=== PATIENT | female | born 1975 | race Caucasian/White ===

== ENCOUNTER 2017-03-11 12:05 | Emergency (ER) | payer OTHER ==
[2017-03-11 12:15] VITALS: BP 142/81
--- NOTE | 2017-03-11 13:10 | UC ---
Sneha Dowling Rebecca, scribed for Billie James MD on 03/11/17 at 1236 . Complaint Female HPI - HPI Summary HPI Summary: Pt is a 41 y/o F who presents to [facility] c/o suspected stuck tampon. Reports the tampon may have been in place for 2 days. She initially did not realize it was stuck, then she believed it had been removed so she put in another one after which "something did not feel right." Now, she is unable to feel the tampon or string but is "90% sure it is there." Additionally c/o lower abdominal pain, ranked 4/10 that began yesterday. Denies vaginal discharge or odor. - History Of Current Complaint Chief Complaint: UCGU Stated Complaint: PERSONAL Time Seen by Provider: 03/11/17 12:34 Hx Obtained From: Patient Hx Last Menstrual Period: 03/07/17 Onset/Duration: Lasting Days - Tampon in place - 2 days Abd pain - 1 day, Still Present Severity Currently: Moderate Pain Intensity: 4 Pain Scale Used: 0-10 Numeric Character: Sharp Associated Signs And Symptoms: Negative: Vaginal Bleeding/Discharge - Allergies/Home Medications Allergies/Adverse Reactions: Allergies Allergy/AdvReac Type Severity Reaction Status Date / Time No Known Allergies Allergy Verified 03/11/17 12:11 Home Medications: Home Medications NK [No Home Medications Reported] 03/11/17 [History Confirmed 03/11/17] PMH/Surg Hx/FS Hx/Imm Hx Previously Healthy: Yes Other GI/ History: IBS - Surgical History Surgical History: None - Family History Known Family History: Positive: Cardiac Disease - father - Social History Occupation: Employed Full-time - professor at [employer]. Alcohol Use: Occasionally Substance Use Type: None Smoking Status (MU): Never Smoked Tobacco Review of Systems Constitutional: Negative Skin: Negative Eyes: Negative ENT: Negative Respiratory: Negative Cardiovascular: Negative Gastrointestinal: Abdominal Pain - Moderate lower abdominal pain--cramping. Genitourinary: Other - suspected tampon in vagina; could not find it. No discharge, no odor. Motor: Negative Neurovascular: Negative Musculoskeletal: Negative Neurological: Negative Psychological: Negative All Other Systems Reviewed And Are Negative: Yes Physical Exam Triage Information Reviewed: Yes Appearance: Well-Appearing, No Pain Distress Vital Signs: Initial Vital Signs Temp 97.8 F 03/11/17 12:12 Pulse 79 03/11/17 12:12 Resp 15 03/11/17 12:12 BP 142/81 03/11/17 12:12 Pulse Ox 100 03/11/17 12:12 Respiratory Exam: Normal Abdomen Description: Positive: Nontender, No Organomegaly, Soft, Other: - Digital exam shows no evidence of foreign body. Speculum exam done without evidence of tampon. Neurological Exam: Normal Psychological Exam: Normal Skin Exam: Normal Complaint Female Dx - Course Course Of Treatment: no treatment required; advised no evidence of foreign body. - Differential Dx/Diagnosis Differential Diagnosis/HQI/PQRI: Retained Foreign Body Provider Diagnoses: menses, no evidence of foreign body. Discharge - Discharge Plan Condition: Stable Disposition: HOME Patient Education Materials: Vaginal Foreign Body (ED) Referrals: Irving Gerard MD [Primary Care Provider] - Additional Instructions: A retained tampon was not evident today with examination. Should you have increasing discharge or foul odor, please return for evaluation. The documentation as recorded by the Sneha stewart Rebecca accurately reflects the service I personally performed and the decisions made by me, Billie James MD.
== END 2017-03-11 13:23 | disposition home or self-care (01) ==
LOC: UCEAST 12:05
DX: N94.89 Other specified conditions associated with female genital organs and menstrual cycle (principal)
CPT/HCPCS: 99212; G0463

== ENCOUNTER 2017-09-16 00:02 | Emergency (ER) | payer OTHER ==
[2017-09-16] MEDS ORDERED: NS 0.9% 1000 ML* 1,000 ML IV ONE (00:27)
[2017-09-16] MEDS ORDERED: Tetan/Diph/Pertus SYR(Tdap)* 0.5 ML SYR(BOOSTRIX) use SYR IM ONE (00:30)
[2017-09-16 01:31] LABS: ABS Basophils 0.1 10^3/ul (0-0.2); ABS Eosinophils 0 10^3/ul (0-0.6); ABS Lymphocytes 0.9 10^3/ul (1.0-4.8); ABS Monocytes 0.5 10^3/ul (0-0.8); ABS Neutrophils 12.1 10^3/ul (1.5-7.7); ABS Nucleated RBC 0 10^3/ul; Eosinophil % 0 % (0-6); Hematocrit 41 % (35-47); Hemoglobin 13.7 g/dl (12.0-16.0); Lymphocyte % 6.8 % (25-47); Mean Corpuscular HGB Conc 34 g/dl (31-36); Mean Corpuscular Hemoglobin 32 pg (27-31); Mean Corpuscular Volume 95 fL (80-97); Mean Platelet Volume 7 um3 (7.4-10.4); Nucleated Red Blood Cells % 0; Platelet Count 348 10^3/ul (150-450); Red Blood Count 4.28 10^6/ul (4.0-5.4); Red Cell Distribution Width 13 % (10.5-15); White Blood Count 13.6 10^3/ul (3.5-10.8)
[2017-09-16 01:47] LABS: EGFR Non-African American 90.9 (>60)
--- NOTE | 2017-09-16 03:05 | ED ---
Danielito Dowling Jason, scribed for Piedad Mauricio MD on 09/16/17 at 0201 . Adult Trauma - HPI Summary HPI Summary: This patient is a 42 year old F BIBA to [facility] with a chief complaint of facial trauma since 2299 1 day ago. The patient states that she woke up to go to restroom and upon returning found blood on her pillow. She found that she had a laceration to the right eye and a right shoulder hematoma, but does not recall falling. She Admits to drinking a few drinks prior to the accident and includes that she drinks every day. The patient rates the pain 3/10 in severity. Symptoms aggravated by nothing. Symptoms alleviated by nothing. - History of Current Complaint Chief Complaint: EDHeadInjury Stated Complaint: EYE INJURY Time Seen by Provider: 09/16/17 00:18 Hx Obtained From: Patient Hx Last Menstrual Period: 03/07/17 Mechanism of Injury: Fall - Does not remember fall but suspects this is the cause. Onset/Duration: Started Hours Ago - Since 2299, Still Present Onset of Pain: Post Accident Pain Intensity: 3 Pain Scale Used: 0-10 Numeric Location: Head - Right eye, Other - Right shoulder Aggravating Factor(s): Nothing Alleviating Factor(s): Nothing Associated Signs & Symptoms: Positive: Other: - right eye laceration and right shoulder hematoma. - Allergy/Home Medications Allergies/Adverse Reactions: Allergies Allergy/AdvReac Type Severity Reaction Status Date / Time No Known Allergies Allergy Verified 03/11/17 12:11 PMH/Surg Hx/FS Hx/Imm Hx Previously Healthy: No Endocrine/Hematology History: Denies: Hx Anticoagulant Therapy Opthamlomology History: Denies: Hx Legally Blind EENT History: Denies: Hx Deafness Infectious Disease History: Yes Infectious Disease History: Reports: Traveled Outside the [place] in Last 30 Days - [place] Denies: Hx Clostridium Difficile, Hx Hepatitis, Hx Human Immunodeficiency Virus (HIV), Hx of Known/Suspected MRSA, Hx Shingles, Hx Tuberculosis, Hx Known/ Suspected VRE, Hx Known/Suspected VRSA, History Other Infectious Disease - Family History Known Family History: Positive: Cardiac Disease - father Negative: Blood Disorder - Social History Alcohol Use: Daily Alcohol Amount: Admits to 3 scotch drinks Substance Use Type: Reports: None Smoking Status (MU): Never Smoked Tobacco Review of Systems Positive: Other - Right eye laceration Positive: Other - right shoulder hematoma All Other Systems Reviewed And Are Negative: Yes Physical Exam - Summary Physical Exam Summary: VITAL SIGNS: Reviewed. GENERAL: ~Patient is a well-developed and nourished female who is lying comfortable in the stretcher. Patient is not in any acute respiratory distress. HEAD AND FACE: No signs of trauma. No ecchymosis, hematomas or skull depressions. No sinus tenderness. EYES: PERRLA, EOMI x 2, No injected conjunctiva, no nystagmus. Ecchymosis over right eye. 1 cm laceration over right orbital area. EARS: Hearing grossly intact. Ear canals and tympanic membranes are within normal limits. MOUTH: Oropharynx within normal limits. NECK: Supple, trachea is midline, no adenopathy, no JVD, no carotid bruit, no c- spine tenderness, neck with full ROM. CHEST: Symmetric, no tenderness at palpation LUNGS: Clear to auscultation bilaterally. No wheezing or crackles. CVS: Regular rate and rhythm, S1 and S2 present, no murmurs or gallops appreciated. ABDOMEN: Soft, non-tender. No signs of distention. No rebound no guarding, and no masses palpated. Bowel sounds are normal. EXTREMITIES: FROM in all major joints, no cyanosis or clubbing. Mild swelling over the right shoulder. NEURO: Alert and oriented x 3. No acute neurological deficits. Speech is normal and follows commands. SKIN: Dry and warm Triage Information Reviewed: Yes Vital Signs On Initial Exam: Initial Vitals Temp Pulse Resp BP Pulse Ox 98.0 F 90 23 118/88 100 09/16/17 00:10 09/16/17 00:10 09/16/17 00:10 09/16/17 00:10 09/16/17 00:10 Vital Signs Reviewed: Yes Procedures - Laceration/Wound Repair 1 Location: face - above right periorbital area Description: Linear Anesthesia: 1.0%, Lido Irrigated w/ Saline (ccs): 20 Laceration/Wound Explored: clean Closure: Multilayer - Two layers were closed. Suture Type: Other - Polisorb 5.0 Number of Sutures: 4 - 1 suture for inner layer. 3 sutures for outer layers. Layer Closure?: Yes Sterile Dressing Applied?: Yes Diagnostics - Vital Signs Vital Signs Temp Pulse Resp BP Pulse Ox 02/10/18 00:12 86 21 100 09/16/17 00:10 98.0 F 90 23 118/88 100 - Laboratory Lab Results: Lab Results 09/16/17 09/16/17 Range/Units 01:20 01:20 WBC 13.6 H (3.5-10.8) 10^3/ul RBC 4.28 (4.0-5.4) 10^6/ul Hgb 13.7 (12.0-16.0) g/dl Hct 41 (35-47) % MCV 95 (80-97) fL MCH 32 H (27-31) pg MCHC 34 (31-36) g/dl RDW 13 (10.5-15) % Plt Count 348 (150-450) 10^3/ul MPV 7 L (7.4-10.4) um3 Neut % (Auto) 88.8 H (38-83) % Lymph % (Auto) 6.8 L (25-47) % Arroyo % (Auto) 3.9 (1-9) % Eos % (Auto) 0 (0-6) % Baso % (Auto) 0.5 (0-2) % Absolute Neuts (auto) 12.1 H (1.5-7.7) 10^3/ul Absolute Lymphs (auto) 0.9 L (1.0-4.8) 10^3/ul Absolute Monos (auto) 0.5 (0-0.8) 10^3/ul Absolute Eos (auto) 0 (0-0.6) 10^3/ul Absolute Basos (auto) 0.1 (0-0.2) 10^3/ul Absolute Nucleated RBC 0 10^3/ul Nucleated RBC % 0 Sodium 135 (133-145) mmol/L Potassium 3.9 (3.5-5.0) mmol/L Chloride 99 L (101-111) mmol/L Carbon Dioxide 25 (22-32) mmol/L Anion Gap 11 (2-11) mmol/L BUN 7 (6-24) mg/dL Creatinine 0.70 (0.51-0.95) mg/dL Est GFR ( Amer) 116.9 (>60) Est GFR (Non-Af Amer) 90.9 (>60) BUN/Creatinine Ratio 10.0 (8-20) Glucose 105 H (70-100) mg/dL Calcium 8.8 (8.6-10.3) mg/dL Total Bilirubin 0.40 (0.2-1.0) mg/dL AST 43 H (13-39) U/L ALT 35 (7-52) U/L Alkaline Phosphatase 38 (34-104) U/L Total Protein 7.7 (6.4-8.9) g/dL Albumin 4.7 (3.2-5.2) g/dL Globulin 3.0 (2-4) g/dL Albumin/Globulin Ratio 1.6 (1-3) Beta HCG, Quant < 0.60 mIU/mL Serum Alcohol 305 H (<10) mg/dL Result Diagrams: 09/16/17 01:20 09/16/17 01:20 Lab Statement: Any lab studies that have been ordered have been reviewed, and results considered in the medical decision making process. - Radiology shoulder x-ray Radiology Interpretation Completed By: ED Physician - Shoulder x-ray reveals AC separation, no fracture. - CT Brain CT Interpretation Completed By: Radiologist - CT Brain reveals, per radiologist , no acute parenchymal abnormality. No hemorrhage, mass or acute territorial infarct. No skull fracture. Clear visualized paranasal sinuses. Visualized mastoid air cells clear. ED physician has reviewed this radiology report. CT maxillofacial CT Interpretation Completed By: ED Physician - CT Maxillofacial reveals, per radiologist, acute comminuted fractures right zygomatic arch, lateral wall and floor of right orbit, and anterior and lateral kwan of right maxillary sinus. Fracture line extends near foot of second right maxillary molar. Associated overlying soft tissue swelling and emphysema and acute hemorrhage in the sinus. Globes intact. Minimal mucoperiosteal thickening paranasal sinuses. ED physician has reviewed this radiology. - EKG 0106 Cardiac Rate: NL EKG Rhythm: Sinus Rhythm - 86 bpm EKG Interpretation: Normal axis, Normal interval, and No ischemic changes. Adult Trauma Course/Dx - Course Course Of Treatment: This patient is a 42 year old F BIBA to [facility] with a chief complaint of facial trauma since 2300 1 day ago. The patient states that she. woke up to go to restroom and upon returning found blood on her pillow. She found that she had a laceration to the right eye and a right shoulder hematoma, but does not recall falling. She Admits to drinking a few drinks prior to the accident and includes that she drinks every day. In the ED course the patient was given IV fluids. Shoulder x-ray reveals AC separation, no fracture. CT Brain reveals, per radiologist, no acute parenchymal abnormality. No hemorrhage , mass or acute territorial infarct. No skull fracture. Clear visualized paranasal sinuses. Visualized mastoid air cells clear. CT Maxillofacial reveals , per radiologist, acute comminuted fractures right zygomatic arch, lateral wall and floor of right orbit, and anterior and lateral kwan of right maxillary sinus. Fracture line extends near foot of second right maxillary molar. Associated overlying soft tissue swelling and emphysema and acute hemorrhage in the sinus. Globes intact. Minimal mucoperiosteal thickening paranasal sinuses. An EKG reveals normal sinus rhythm at 86 bpm, with Normal axis, Normal interval, and No ischemic changes. Assessment/Plan: The laceration above the right periorbital area was repaired using sutures. Patient will be discharged and will follow up with PCP to remove stitches in 5 days. The patient is agreeable with this plan. Dx of ETOH intoxication and facial laceration. - Diagnoses Provider Diagnoses: Alcohol intoxication, Facial laceration Discharge - Discharge Plan Condition: Stable Disposition: HOME Patient Education Materials: Care For Your Stitches (ED), Alcohol Intoxication (ED), Facial Laceration (ED) Referrals: Irving Gerard MD [Primary Care Provider] - The documentation as recorded by the Danielito stewart Jason accurately reflects the service I personally performed and the decisions made by , Piedad Mauricio MD.
[2017-09-16 04:08] VITALS: BP 113/76
--- NOTE | 2017-09-16 08:12 | RAD ---
Indication: Fall with laceration to RIGHT side of eye. Hematoma at RIGHT shoulder. Comparison: No relevant prior exams available on the [facility] [place] for comparison. Technique: Noncontrast CT vertex of skull through foramen magnum. Report: The sulci, ventricles, and basal cisterns are normal for age. Rutherford matter white matter differentiation is preserved without evidence for edema. No intra or extra axial hemorrhage is detected. At the caudal aspect of the [id number] there is partial visualization of a fracture at the lateral margin of the RIGHT orbit and segmental medially impacted fracture at the RIGHT zygomatic arch. Overlying subcutaneous edema and punctate focus of subcutaneous emphysema. Refer to dedicated maxillofacial CT for full description including assessment of the orbital contents. Clear visualized paranasal sinuses and mastoid air spaces. IMPRESSION: 1. No CT evidence for traumatic brain injury or acute intracranial process. 2. Fracture at the lateral margin of the RIGHT orbit and segmental medially impacted fracture at the RIGHT zygomatic arch. Overlying subcutaneous edema and punctate focus of subcutaneous emphysema. Refer to dedicated maxillofacial CT for full description including assessment of the orbital contents.
--- NOTE | 2017-09-16 08:20 | RAD ---
INDICATION: Fall with laceration to the RIGHT eye. Hematoma at RIGHT shoulder. COMPARISON: CT brain of the same date. TECHNIQUE: Multidetector CT base of the skull through mandible without contrast. Multiplanar reformation. REPORT: Multiple fractures about the RIGHT orbit, maxillary sinus, and zygomatic arch with segmental fracture pattern and up to 4 mm medial displacement of the lateral wall of the maxillary sinus and orbit as well as up to 1 cm depression of the zygomatic arch. Fractures and segmental fractures visualized at the posterolateral wall of the RIGHT maxillary sinus, anterior wall of the maxillary sinus and floor of the orbit, lateral wall of the orbit, and zygomatic arch. Overlying soft tissue edema most prominent superficial to the lateral margin of the orbit and at the anterior lateral malar eminence. Minimal associated subcutaneous emphysema adjacent to the lateral wall of the orbit. Fluid level at the RIGHT maxillary sinus. Negative for intraconal orbital hematoma. Minimal infiltrative hematoma at the lateral aspect of the RIGHT extraconal orbit. Negative for extraocular muscle entrapment. Negative for fracture of the lamina papyracea. Intact nasal bones, base of the maxilla, and mandible. Intact pterygoid plates. Normal temporal mandibular joint alignment. IMPRESSION: 1. Multiple fractures about the RIGHT orbit, maxillary sinus, and zygomatic arch with segmental fracture pattern and up to 4 mm medial displacement of the lateral wall of the maxillary sinus and orbit as well as up to 1 cm depression of the zygomatic arch. 2. Minimal infiltrative hematoma at the lateral aspect of the RIGHT extraconal orbit. Negative for extraocular muscle entrapment.
--- NOTE | 2017-09-16 08:22 | RAD ---
Indication: Hematoma at the RIGHT shoulder post fall. Comparison: No relevant prior exams available [place] the [facility] [place] for [place]. Technique: 5 views of the RIGHT shoulder. Report: Increased transverse gap at the acromioclavicular joint and mildly increased coracoclavicular distance. Normal glenohumeral joint alignment. Negative for fracture. Supraspinatus level calcific tendinopathy. Unremarkable soft tissue contours. IMPRESSION: 1. High-grade AC joint separation with increased transverse gap and mildly increased coracoclavicular distance. 2. Negative for fracture. 3. Supraspinatus level calcific tendinopathy.
== END 2017-09-16 04:13 | disposition home or self-care (01) ==
LOC: ED 00:02
DX: S01.111A Laceration without foreign body of right eyelid and periocular area, initial encounter (principal); S02.81XA Fracture of other specified skull and facial bones, right side, initial encounter for closed fracture; S02.40CA Maxillary fracture, right side, initial encounter for closed fracture; S02.40EA Zygomatic fracture, right side, initial encounter for closed fracture; S43.101A Unspecified dislocation of right acromioclavicular joint, initial encounter; X58.XXXA Exposure to other specified factors, initial encounter; Y92.9 Unspecified place or not applicable; S01.81XA Laceration without foreign body of other part of head, initial encounter; W19.XXXA Unspecified fall, initial encounter; F10.129 Alcohol abuse with intoxication, unspecified; Z23 Encounter for immunization
CPT/HCPCS: 36415; 70450; 70486; 80053; 80320; 84702; 85025; 90471; 90715; 93005; 96361; 99284; G0480